=== PATIENT | female | born 1960 | race Hispanic/Latino ===

== ENCOUNTER 2017-04-05 01:29 | Emergency (ER) | payer SELFPAY ==
[~2017-04-05] VITALS: Ht 167.6 cm; Wt 113.4 kg
[~2017-04-05 01:29] MED LIST: DOXY100C2 PO; GFN600TCR PO
--- NOTE | 2017-04-05 01:53 | ED Headache ---
General Stated Complaint: POSS HIGH BLOOD PRESSURE,OWENS Source: patient, family Exam Limitations: language barrier History of Present Illness Time seen by provider: 01:49 Initial Comments Patient presents c/ son c/ c/o OWENS since yesterday. Son states patient's BP has been high of late and wonders if it is a factor. Patient doesn't speak Monegasque. Son is translating. Patient was apparently seen @ [facility] on Monday for back pain and was reportedly evaluated and worked up there. Told she had high BP and was started on metoprolol, but BP has continued to run high. Has a follow up appointment c/ [facility] in 2 weeks. Rates her OWENS a 5/10 and is generalized. No known fever. No N/V. Timing/Duration: 24 hours Severity/Quality: moderate, achy, constant Location: global Prior Headaches/Recent Trauma: occasional headaches Modifying Factors: improves with other (none known) Associated Symptoms: No confusion, No facial pain, No fever/chills, No nausea/ vomiting, No numbness in legs/feet, No sinus infection, No stiff neck, No vision changes Allergies and Home Medications Allergies Coded Allergies: No Known Drug Allergies (Unverified Allergy, Mild, 07/26/09) Home Medications Amlodipine Besylate 5 Mg Tablet, 5 MG PO DAILY, #30 Ref 0 Prescribed by: SHAMIR SHEIKH on 04/05/174 Doxycycline Hyclate 100 Mg Capsule, 1 EACH PO BID for 10 Days, Ref 0 Prescribed by: HAWA DEVI MD on 07/26/0958 Guaifenesin 600 Mg Tab, 600 MG PO Q12HR, #20 Ref 0 Prescribed by: AHWA DEVI MD on 07/26/0958 Constitutional: see HPI : No Psychiatric/Neurological: See HPI, Headache All Other Systems Reviewed Negative Unless Noted: Yes (Negative excepted noted.) Past Kovjxlv-Bqhcxd-Qbasku Hx Patient Social History Recent Foreign Travel: No Contact w/Someone Who Travel: No Physical Exam Vital Signs Vital Sign - Last 12Hours 04/05/17 04/05/17 01:35 03:15 Temp 97.9 Pulse 75 Resp 17 B/P (MAP) 197/102 Pulse Ox 100 O2 Delivery Room Air Capillary Refill : General Appearance: WD/WN, no apparent distress, obese HEENT: PERRL/EOMI, normal ENT inspection, pharynx normal Neck: supple, normal inspection Cardiovascular: regular rate, rhythm Respiratory: no respiratory distress Gastrointestinal: other (obese) Psychiatric: alert Crainal Nerves: normal hearing, PERRL Motor/Sensory: no motor deficit, no sensory deficit Reflexes: 2+ Knee (R), 2+ Knee (L) Skin: warm/dry Progress/Results/Core Measures Results/Orders My Orders Orders - SHAMIR SHEIKH DO Ct Head Wo (04/05/17 01:53) Clonidine Tablet (Catapres Tablet) (04/05/17 02:00) Amlodipine Tablet (Norvasc Tablet) (04/05/17 03:00) Amlodipine Tablet (Norvasc Tablet) (04/05/17 03:07) Medications Given in ED Vital Signs/I&O Vital Sign - Last 12Hours 04/05/17 04/05/17 01:35 03:15 Temp 97.9 97.9 Pulse 75 75 Resp 17 17 B/P (MAP) 197/102 Pulse Ox 100 O2 Delivery Room Air Progress Note : Progress Note Owens did resolve c/ lowering of patient's BP. Going to add Norvasc to current regimen. Told the son the [facility] has a walk in clinic if symptoms continue and can 't wait until scheduled appointment in 2 weeks. Diagnostic Imaging Diagonstic Imaging: CT Plain Films/CT/US/NM/MRI: head Reviewed: Reviewed Night Hawk Study (nothing acute) Departure Impression Impression: Primary Impression: Labile hypertension Additional Impression: Headache Disposition: 01 HOME, SELF-CARE Condition: Improved Departure-Patient Inst. Decision time for Depature: 03:11 Referrals: [facility] (PCP/Family) Primary Care Physician Patient Instructions: High Blood Pressure (DC), Low Salt Diet Add. Discharge Instructions: CONTINUE YOUR CURRENT BLOOD PRESSURE MEDICINE. BEGIN NEW ONE AT BEDTIME MONDAY NIGHT AND DAILY THEREAFTER. KEEP [facility]MENT [facility]EDUL[facility] DO HAVE A WALK IN CLINIC IF NEEDED. Scripts Amlodipine Besylate (Norvasc) 5 Mg Tablet 5 MG PO DAILY for Blood Pressure, #30 TAB 0 Refills Prov: SHAMIR SHEIKH DO 04/05/17 SHAMIR SHEIKH DO Apr 05, 2017 01:53
[2017-04-05] MEDS ORDERED: cloNIDine 0.2 MG (CATAPRES) TAB PO ONE (02:00)
[2017-04-05] MEDS ORDERED: amLODIPine 5 MG (NORVASC) TAB PO ONE (03:00)
[2017-04-05] MEDS ORDERED: amLODIPine 5 MG (NORVASC) TAB ONE (03:07)
[2017-04-05] MEDS ORDERED: AMLO5TAB4 PO (03:14)
[2017-04-05 03:15] VITALS: BP 156/85
--- NOTE | 2017-04-05 07:20 | Diagnostic Imaging Report ---
PROCEDURE: CT head without contrast. TECHNIQUE: Multiple contiguous axial images were obtained through the brain without the use of intravenous contrast. INDICATION: Headache. CT head without contrast shows no evidence of intracranial hemorrhage or mass effect. No extra-axial fluid collection. Basal cisterns are clear. Mastoid air cells and paranasal sinuses well-aerated. IMPRESSION: Negative CT head without contrast. These findings are in agreement with the preliminary report. Dictated by: Dictated on workstation # [id number]
== END 2017-04-05 03:15 | disposition home or self-care (01) ==
LOC: EDUNIT# 01:29 → ER 01:32
DX: R03.0 Elevated blood-pressure reading, without diagnosis of hypertension (principal); R51 Headache
CPT/HCPCS: 70450; 99283

== ENCOUNTER 2017-05-11 22:11 | Emergency (ER) | payer OTHER ==
[~2017-05-11] VITALS: Ht 165.1 cm; Wt 92.1 kg
[~2017-05-11 22:11] MED LIST changes: +AMLO5TAB4 PO
--- NOTE | 2017-05-11 23:22 | ED Cardiac General ---
History of Present Illness General Chief Complaint: Cardiac/General Problems Stated Complaint: HIGH BLOOD PRESSURE Source: patient, family (son) Exam Limitations: language barrier (Vietnamese. Son is bilingual and interpreting) History of Present Illness Time seen by provider: 23:14 Initial Comments Patient presents to ER with chief complaint of feeling a little nauseated and unwell and having a high blood pressure. She was started on metoprolol 50 mg twice a day about 10 days ago and then 3 days ago she was seen in the clinic at [facility] and they added amlodipine 5 mg. Yesterday she was seen for her blood pressure and was started on losartan 25 mg daily. She states she's been taking these medicines without issue. She was also seen 3 days ago for sinus pressure and was diagnosed with a sinus infection and started on Augmentin which she has been taking for the past 3 days. She now has some loose stools and was told by the nurse today that that could be the direct result of the Augmentin. She has no rashes fevers or chills however she has had malaise for the past week or so. She has not had any syncope or abnormal facies or falls or stumbling or weakness. She's had no blindness blurred vision double vision or difficulty with hearing speaking eating or drinking. She feels she is keeping up with her fluid intake despite the diarrhea. Allergies and Home Medications Allergies Coded Allergies: No Known Drug Allergies (Unverified Allergy, Mild, 07/26/09) Home Medications Amlodipine Besylate 5 Mg Tablet, 5 MG PO DAILY, #30 Ref 0 Prescribed by: SHAMIR SHEIKH on 04/05/17 0314 Doxycycline Hyclate 100 Mg Capsule, 1 EACH PO BID for 10 Days, Ref 0 Prescribed by: HAWA DEVI MD on 07/26/09 0658 Guaifenesin 600 Mg Tab, 600 MG PO Q12HR, #20 Ref 0 Prescribed by: HAWA DEVI MD on 07/26/09 0658 Review of Systems Constitutional: No chills, No diaphoresis, No fever, malaise EENTM: No Blurred Vision, No Double Vision, No Eye Pain, No Ear Pain Respiratory: Denies Cough, Denies Shortness of Air Cardiovascular: Denies Chest Pain, Denies Edema, Denies Lightheadedness, Denies Palpitations, Denies Syncope Gastrointestinal: Denies Constipated, Denies Diarrhea, Denies Nausea, Poor Appetite Genitourinary: Denies Burning, Denies Discharge Musculoskeletal: No back pain, No joint pain Skin: No pruritus, No rash Psychiatric/Neurological: Headache (4/10), Denies Numbness Past Vsoiwtu-Jkahdo-Mqlmma Hx Patient Social History Alcohol Use: Denies Use Recreational Drug Use: No Smoking Status: Never a Smoker 2nd Hand Smoke Exposure: No Recent Hopitalizations: No Immunizations Up To Date Tetanus Booster (TDap): Unknown Seasonal Allergies Seasonal Allergies: No Cardiovascular Cardiac Disorders: Hypertension Musculoskeletal Musculoskeletal Disorders: Chronic Back Pain Physical Exam Vital Signs Vital Sign - Last 12Hours 05/11/17 23:09 Temp 98.8 Pulse 90 Resp 20 B/P (MAP) 217/115 Pulse Ox 99 O2 Delivery Room Air Capillary Refill : General Appearance: No Apparent Distress, WD/WN, Anxious HEENT: PERRL/EOMI, TMs Normal, Normal ENT Inspection, Pharynx Normal Neck: Normal Inspection, Supple Respiratory: Lungs Clear, Normal Breath Sounds Cardiovascular: Regular Rate, Rhythm, No Edema, Normal Peripheral Pulses Gastrointestinal: No Organomegaly, No Pulsatile Mass Extremity: Normal Capillary Refill, Normal Inspection, No Calf Tenderness, No Pedal Edema Neurologic/Psychiatric: Alert, Oriented x3, No Motor/Sensory Deficits, inside sales advisor II- XII Norm as Tested Skin: Normal Color, Warm/Dry Progress/Results/Core Measures Results/Orders Lab Results Laboratory Tests Test 05/11/17 23:58 Range/Units White Blood Count 9.5 4.3-11.0 10^3/uL Red Blood Count 4.52 4.35-5.85 10^6/uL Hemoglobin 12.9 11.5-16.0 G/DL Hematocrit 38 35-52 % Mean Corpuscular Volume 85 80-99 FL Mean Corpuscular Hemoglobin 29 25-34 PG Mean Corpuscular Hemoglobin Concent 34 32-36 G/DL Red Cell Distribution Width 13.2 10.0-14.5 % Platelet Count 369 130-400 10^3/uL Mean Platelet Volume 8.8 7.4-10.4 FL Neutrophils (%) (Auto) 70 42-75 % Lymphocytes (%) (Auto) 20 12-44 % Monocytes (%) (Auto) 8 0-12 % Eosinophils (%) (Auto) 1 0-10 % Basophils (%) (Auto) 0 0-10 % Neutrophils # (Auto) 6.6 1.8-7.8 X 10^3 Lymphocytes # (Auto) 1.9 1.0-4.0 X 10^3 Monocytes # (Auto) 0.8 0.0-1.0 X 10^3 Eosinophils # (Auto) 0.1 0.0-0.3 10^3/uL Basophils # (Auto) 0.0 0.0-0.1 10^3/uL Sodium Level 137 135-145 MMOL/L Potassium Level 3.5 L 3.6-5.0 MMOL/L Chloride Level 103 98-107 MMOL/L Carbon Dioxide Level 22 21-32 MMOL/L Anion Gap 12 5-14 MMOL/L Blood Urea Nitrogen 14 7-18 MG/DL Creatinine 0.76 0.60-1.30 MG/DL Estimat Glomerular Filtration Rate > 60 BUN/Creatinine Ratio 18 Glucose Level 229 H 70-105 MG/DL Calcium Level 9.1 8.5-10.1 MG/DL Magnesium Level 2.1 1.8-2.4 MG/DL Total Bilirubin 0.6 0.1-1.0 MG/DL Aspartate Amino Transf (AST/SGOT) 10 5-34 U/L Alanine Aminotransferase (ALT/SGPT) 14 0-55 U/L Alkaline Phosphatase 92 40-136 U/L Troponin I < 0.30 <0.30 NG/ML C-Reactive Protein High Sensitivity 0.37 0.00-0.50 MG/DL B-Type Natriuretic Peptide 19.4 <100.0 PG/ML Total Protein 7.5 6.4-8.2 GM/DL Albumin 3.9 3.2-4.5 GM/DL Thyroid Stimulating Hormone (TSH) 1.44 0.35-4.94 UIU/ML My Orders Orders - BRENDA ALVAREZ Troponin I (05/11/17 23:22) Chest 1 View, Ap/Pa Only (05/11/17 23:22) Ekg Tracing (05/11/17 23:22) Monitor-Rhythm Ecg Trace Only (05/11/17 23:22) Ondansetron Oral Dissolve Tab (Zofran (05/11/17 23:30) BNP (05/11/17 23:22) Cbc With Automated Diff (05/11/17 23:22) Comprehensive Metabolic Panel (05/11/17 23:22) Hs C Reactive Protein (05/11/17 23:22) Magnesium (05/11/17 23:22) Thyroid Stimulating Hormone (05/11/17 23:22) Potassium Chloride (Tablet) (K Dur Table (05/12/17 01:00) Medications Given in ED Current Medications Medications Dose Ordered Sig/Ananda Route Start Time Stop Time Status Last Admin Dose Admin Ondansetron HCl 4 mg ONCE ONCE PO 05/11/17 23:30 05/11/17 23:31 DC 05/11/17 23:42 4 MG Potassium Chloride 20 meq ONCE ONCE PO 05/12/17 01:00 05/12/17 01:01 DC 05/12/17 00:51 20 MEQ Vital Signs/I&O Vital Sign - Last 12Hours 05/11/17 23:09 Temp 98.8 Pulse 90 Resp 20 B/P (MAP) 217/115 Pulse Ox 99 O2 Delivery Room Air Progress Note : Time: 00:23 Progress Note After resting for 20-30 minutes her blood pressure fell to 190/96 which is greater than 20 mm systolic. The patient is still asymptomatic hypertension so we would just initiate a diuretic and let her follow up with her PCP. Augmentin would be a good choice for what appears to be a sinus infection without any systemic signs and the lab. ECG Initial ECG Impression Date: May 12, 2017 Initial ECG Impression Time: 00:11 Initial ECG Rate: 75 Initial ECG Rhythm: Normal Sinus Initial ECG Intervals: Normal Initial ECG Impression: Nonspecific Changes Comment No ST-T wave elevation or depression Diagnostic Imaging Diagonstic Imaging: Xray Plain Films/CT/US/NM/MRI: chest Comments Mild cardiomegaly without any acute cardiopulmonary processes noted. Reviewed: Reviewed by Me Departure Impression Impression: Primary Impression: Asymptomatic hypertension Additional Impression: Diarrhea Qualified Codes: R19.7 - Diarrhea, unspecified Disposition: 01 HOME, SELF-CARE Condition: Improved Departure-Patient Inst. Decision time for Depature: 01:20 Referrals: [facility] (PCP/Family) Primary Care Physician Patient Instructions: High Blood Pressure (DC) Add. Discharge Instructions: Her high blood pressure or best be treated with a another medicine that will remove water from your system called Hydrocort thiazide. This medicine can be taken once daily. For the first day or so you can take one half tablet to your used to taking it. You will need to follow-up early next week for blood testing and blood pressure testing with your primary care physician. If you're having any more symptoms of feeling odd, off or having a headache or chills then I would have you go lay down in a quiet place for 30 minutes and rechecked her blood pressure. If you're having any symptoms with your nerves such as blindness falls, facial drooping or asymmetry then you should return to the ER immediately. If you continue to have diarrhea you should take 2 tablets of Imodium. If you' re having diarrhea 4 hours later take another tablet every 4 hours until your diarrhea has slowed down. I encouraged you to increase the fiber in your diet with dark green leafy vegetables like Kale, spinach, broccoli and while you're on antibiotics you should eat 2 servings of yogurt with active culture as well as take one capsule of probiotics twice a day until you're done with the antibiotics. If you're still unable to tolerate the antibiotics and the diarrhea then you should speak with your primary care physician. You should also encourage lots of fluids such as half strength Gatorade or water. All discharge instructions reviewed with patient and/or family. Voiced understanding. Scripts Hydrochlorothiazide (Hydrochlorothiazide) 25 Mg Tablet 25 MG PO DAILY for 30 Days, #30 TAB 0 Refills Prov: BRENDA ALVAREZ 05/12/17 Copy Copies To 1: HENRY MENG TITUS J May 11, 2017 23:21
[2017-05-11] MEDS ORDERED: ONDANSETRON 4 MG (ZOFRAN) ORAL DISSOLVE TAB PO ONE (23:30)
[2017-05-12 00:12] LABS: BASOPHILS % (AUTO) 0 % (0-10); EOSINOPHILS # (AUTO) 0.1 10^3/uL (0.0-0.3); EOSINOPHILS % (AUTO) 1 % (0-10); LYMPHOCYTES # (AUTO) 1.9 X 10^3 (1.0-4.0); LYMPHOCYTES % (AUTO) 20 % (12-44); MEAN CORPUSCULAR HEMOGLOBIN 29 PG (25-34); MEAN CORPUSCULAR HGB CONC 34 G/DL (32-36); MEAN CORPUSCULAR VOLUME 85 FL (80-99); MEAN PLATELET VOLUME 8.8 FL (7.4-10.4); MONOCYTES # (AUTO) 0.8 X 10^3 (0.0-1.0); MONOCYTES % (AUTO) 8 % (0-12); NEUTROPHILS # (AUTO) 6.6 X 10^3 (1.8-7.8); NEUTROPHILS % (AUTO) 70 % (42-75); PLATELET COUNT 369 10^3/uL (130-400); RED BLOOD COUNT 4.52 10^6/uL (4.35-5.85); RED CELL DISTRIBUTION WIDTH 13.2 % (10.0-14.5); WHITE BLOOD COUNT 9.5 10^3/uL (4.3-11.0)
[2017-05-12 00:37] LABS: ALANINE AMINOTRANSFERASE 14 U/L (0-55); ALBUMIN 3.9 GM/DL (3.2-4.5); ANION GAP 12 MMOL/L (5-14); ASPARTATE AMINO TRANSFERASE 10 U/L (5-34); BILIRUBIN,TOTAL 0.6 MG/DL (0.1-1.0); BLOOD UREA NITROGEN 14 MG/DL (7-18); BUN/CREATININE RATIO 18; CALCIUM 9.1 MG/DL (8.5-10.1); CARBON DIOXIDE 22 MMOL/L (21-32); CHLORIDE 103 MMOL/L (98-107); CREATININE SERUM 0.76 MG/DL (0.60-1.30); GFR ESTIMATED > 60; GLUCOSE 229 MG/DL (70-105); MAGNESIUM 2.1 MG/DL (1.8-2.4); POTASSIUM 3.5 MMOL/L (3.6-5.0); SODIUM 137 MMOL/L (135-145); TOTAL PROTEIN 7.5 GM/DL (6.4-8.2); hs C REACTIVE PROTEIN 0.37 MG/DL (0.00-0.50)
[2017-05-12 00:56] LABS: THYROID STIMULATING HORMONE 1.44 UIU/ML (0.35-4.94)
[2017-05-12] MEDS ORDERED: KCL 20 MEQ TAB (K-DUR) PO ONE (01:00)
[2017-05-12] MEDS ORDERED: HYDR25TA4 PO (01:27)
[2017-05-12 01:31] VITALS: BP 163/95
--- NOTE | 2017-05-12 07:22 | Diagnostic Imaging Report ---
Portable upright radiograph of the chest. INDICATION: Elevated blood pressure. FINDINGS: The lungs are clear. Heart size is normal. No effusion or pneumothorax. Mediastinum and marianela appear unremarkable. IMPRESSION: Unremarkable exam. Dictated by: Dictated on workstation # [id number]
== END 2017-05-12 01:31 | disposition home or self-care (01) ==
LOC: EDUNIT# 22:11 → ER 22:12
DX: I10 Essential (primary) hypertension (principal); R19.7 Diarrhea, unspecified; Z79.899 Other long term (current) drug therapy
CPT/HCPCS: 36415; 71010; 80053; 83735; 83880; 84443; 84484; 85025; 86141; 93005

== ENCOUNTER → 2017-07-03 | Outpatient (CLI) | payer OTHER ==
[~2017-07-03] MED LIST changes: +HYDR25TA4 PO
== END ==
LOC: EDBD → MERGE 09:00 → CARD 09:09
PROVIDERS: ATTEND Internal Medicine Cardiovascular Disease
DX: I10 Essential (primary) hypertension (principal)
CPT/HCPCS: 93306

== ENCOUNTER → 2017-07-12 | Outpatient (CLI) | payer OTHER | LOC: EDBD → MERGE 07-03 10:30 → CARD 09:31 | PROVIDERS: ATTEND Internal Medicine Cardiovascular Disease | DX: I10 Essential (primary) hypertension (principal) | CPT/HCPCS: 93017 ==

== ENCOUNTER 2017-11-28 15:06 | Emergency (ER) | payer SELFPAY ==
[~2017-11-28] VITALS: Ht 167.6 cm; Wt 88.5 kg
[2017-11-28] MEDS ORDERED: PANTOPRAZOLE 40 MG/10 ML (PROTONIX) VIAL IV STA (15:38)
[2017-11-28] MEDS ORDERED: NS IV 1000 ML 1,000 ML IV ONE (15:38)
[2017-11-28] MEDS ORDERED: HYOSCYAMINE 0.125 MG (LEVSIN) TAB SL ONE (15:45)
[2017-11-28] MEDS ORDERED: ONDANSETRON 4 MG/2 ML (SDV) Z0FRAN IVP ONE (15:45)
--- NOTE | 2017-11-28 15:47 | ED Abdominal Pain ---
General Chief Complaint: Abdominal/GI Problems Stated Complaint: ABD PAIN;NAUSEA Nursing Triage Note: pt reports nausea and abdmominal pain since yesterday morning. 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 LATER [employer]PRETS) Exam Limitations: Language Barrier (PT DOES NOT SPEAK AMHARIC) History of Present Illness Date Seen by Provider: Nov 28, 2017 Time Seen by Provider: 15:30 Initial Comments PT C/O UPPER ABDOMINAL PAIN FOR A COUPLE OF DAYS PAIN COMES AND GOES AND IS SEVERE AT TIMES HAS NAUSEA WHEN PAIN IN SEVERE HAD DIARRHEA X 2 THIS AM HAS HAD SUBJECTIVE FEVER NO URINARY SYMPTOMS AND VOIDED IN WAITING ROOM HAS NOT HAD ANY FOOD TODAY, BUT HAS HAD 2 BOTTLES OF WATER AND SMALL AMOUNT OF JUICE. PT WAS DX WITH ULCER 5 MONTHS AGO--HAD EGD X 2, INITIAL EGD, AND HAD POST- TREATMENT EGD, AND POST-TREATMENT EGD SHOWED THAT ULCER WAS HEALED, FINISHED MEDICATIONS A MONTH AGO AND WAS TOLD SHE DID NOT HAVE TO TAKE ANY MORE MEDICATIONS. PT IS DIABETIC, ON ORAL MEDICATIONS, GLUCOSE WAS 140 THIS AM PCP: [facility] GI: UNKNOWN DR. PEPE ALCARAZ Allergies and Home Medications Allergies Coded Allergies: No Known Drug Allergies (Unverified Allergy, Mild, 07/26/09) Home Medications Amlodipine Besylate 5 Mg Tablet, 5 MG PO DAILY, #30 Ref 0 Prescribed by: SHAMIR SHEIKH on 04/05/17 0314 Doxycycline Hyclate 100 Mg Capsule, 1 EACH PO BID for 10 Days, Ref 0 Prescribed by: HAWA DEVI MD on 07/26/09 0658 Guaifenesin 600 Mg Tab, 600 MG PO Q12HR, #20 Ref 0 Prescribed by: HAWA DEVI MD on 07/26/09 0658 Hydrochlorothiazide 25 Mg Tablet, 25 MG PO DAILY for 30 Days, #30 Ref 0 Prescribed by: BRENDA ALVAREZ on 05/12/17 0127 Hyoscyamine Sulfate 0.125 Mg Tab.subl, 1-2 TAB SL Q4H, #15 Prescribed by: SONG OCHOA on 11/28/17 1752 Ondansetron 4 Mg Tab.rapdis, 4 MG PO Q4H, #10 Prescribed by: SONG OCHOA on 2/6/18 1752 Pantoprazole Sodium 40 Mg Tablet., 40 MG PO DAILY, #30 Prescribed by: SONG OCHOA on 11/28/171751 Sucralfate 1 Gm Tablet, 1 GM PO QIDACHS, #120 Prescribed by: SONG OCHOA on 11/28/171751 Review of Systems Constitutional: no symptoms reported EENTM: No Symptoms Reported Respiratory: No Symptoms Reported Cardiovascular: No Symptoms Reported Gastrointestinal: See HPI, Abdominal Pain, Diarrhea, Nausea, Poor Appetite, Poor Fluid Intake, Denies Vomiting Genitourinary: No Symptoms Reported Musculoskeletal: no symptoms reported Skin: no symptoms reported Psychiatric/Neurological: No Symptoms Reported Endocrine: No Symptoms Reported Hematologic/Lymphatic: No Symptoms Reported Past Gmchokg-[id number]-Xfbjhk Hx Patient Social History Alcohol Use: Denies Use Recreational Drug Use: No Smoking Status: Never a Smoker 2nd Hand Smoke Exposure: No Recent Foreign Travel: No Contact w/Someone Who Travel: No Recent Infectious Disease Expo: No Recent Hopitalizations: No Physical Abuse: No Sexual Abuse: No Mistreated: No Fear: No Immunizations Up To Date Tetanus Booster (TDap): Unknown Seasonal Allergies Seasonal Allergies: No Surgeries History of Surgeries: Yes (EGD X 2) Respiratory History of Respiratory Disorde: No Cardiovascular History of Cardiac Disorders: Yes Cardiac Disorders: High Cholesterol, Hypertension Neurological History of Neurological Disord: No Reproductive System : 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 Genitourinary History of Genitourinary Disor: No Gastrointestinal History of Gastrointestinal Di: Yes Gastrointestinal Disorders: Ulcer Musculoskeletal History of Musculoskeletal Dis: Yes Musculoskeletal Disorders: Chronic Back Pain Endocrine History of Endocrine Disorders: Yes Endocrine Disorders: Diabetes, Non-Insulin dep HEENT History of HEENT Disorders: No Cancer History of Cancer: No Psychosocial History of Psychiatric Problem: No Suicide Risk Score: 0 Integumentary History of Skin or Integumenta: No Blood Transfusions History of Blood Disorders: No Physical Exam Vital Signs VS - Last 72 Hours, by Label 11/28/17 15:25 Temp 98.2 Pulse 90 Resp 20 B/P (MAP) 168/98 (121) Pulse Ox 100 Capillary Refill : Less Than 3 Seconds General Appearance: WD/WN, no apparent distress Neck: normal inspection Respiratory: normal breath sounds, no respiratory distress, no accessory muscle use Cardiovascular: regular rate, rhythm, no edema, no JVD, no murmur Gastrointestinal: normal bowel sounds, soft, no organomegaly, no pulsatile mass , tenderness (EPIGASTRIC AREA) Extremities: normal inspection, normal capillary refill Back: normal inspection, no CVA tenderness Neurologic/Psychiatric: value analyst II-XII nml as tested, no motor/sensory deficits, alert, normal mood/affect, oriented x 3 Skin: normal color, warm/dry Progress/Results/Core Measures Results/Orders Lab Results Laboratory Tests Test 11/28/17 15:43 Range/Units White Blood Count 9.2 4.3-11.0 10^3/uL Red Blood Count 4.48 4.35-5.85 10^6/uL Hemoglobin 13.1 11.5-16.0 G/DL Hematocrit 38 35-52 % Mean Corpuscular Volume 85 80-99 FL Mean Corpuscular Hemoglobin 29 25-34 PG Mean Corpuscular Hemoglobin Concent 35 32-36 G/DL Red Cell Distribution Width 13.5 10.0-14.5 % Platelet Count 307 130-400 10^3/uL Mean Platelet Volume 8.9 7.4-10.4 FL Neutrophils (%) (Auto) 76 H 42-75 % Lymphocytes (%) (Auto) 18 12-44 % Monocytes (%) (Auto) 5 0-12 % Eosinophils (%) (Auto) 1 0-10 % Basophils (%) (Auto) 0 0-10 % Neutrophils # (Auto) 7.0 1.8-7.8 X 10^3 Lymphocytes # (Auto) 1.6 1.0-4.0 X 10^3 Monocytes # (Auto) 0.4 0.0-1.0 X 10^3 Eosinophils # (Auto) 0.1 0.0-0.3 10^3/uL Basophils # (Auto) 0.0 0.0-0.1 10^3/uL Urine Color YELLOW Urine Clarity CLEAR Urine pH 6 5-9 Urine Specific [place] 1.010 L 1.016-1.022 Urine Protein NEGATIVE NEGATIVE Urine Glucose (UA) NEGATIVE NEGATIVE Urine Ketones NEGATIVE NEGATIVE Urine Nitrite NEGATIVE NEGATIVE Urine Bilirubin NEGATIVE NEGATIVE Urine Urobilinogen NORMAL NORMAL MG/DL Urine Leukocyte Esterase 1+ H NEGATIVE Urine RBC (Auto) NEGATIVE NEGATIVE Urine RBC NONE /HPF Urine WBC 0-2 /HPF Urine Squamous Epithelial Cells 0-2 /HPF Urine Crystals NONE /LPF Urine Bacteria NONE /HPF Urine Casts NONE /LPF Urine Mucus NEGATIVE /LPF Urine Culture Indicated NO Sodium Level 137 135-145 MMOL/L Potassium Level 3.4 L 3.6-5.0 MMOL/L Chloride Level 101 98-107 MMOL/L Carbon Dioxide Level 24 21-32 MMOL/L Anion Gap 12 5-14 MMOL/L Blood Urea Nitrogen 17 7-18 MG/DL Creatinine 0.81 0.60-1.30 MG/DL Estimat Glomerular Filtration Rate > 60 BUN/Creatinine Ratio 21 Glucose Level 179 H 70-105 MG/DL Calcium Level 10.0 8.5-10.1 MG/DL Magnesium Level 2.1 1.8-2.4 MG/DL Total Bilirubin 0.9 0.1-1.0 MG/DL Aspartate Amino Transf (AST/SGOT) 22 5-34 U/L Alanine Aminotransferase (ALT/SGPT) 37 0-55 U/L Alkaline Phosphatase 90 40-136 U/L Total Protein 8.4 H 6.4-8.2 GM/DL Albumin 4.4 3.2-4.5 GM/DL Amylase Level 91 25-125 U/L Lipase 30 8-78 U/L My Orders Orders - SONG OCHOA DO Saline Lock/Iv-Start (11/28/17 15:38) Amylase (11/28/17 15:38) Cbc With Automated Diff (11/28/17 15:38) Comprehensive Metabolic Panel (11/28/17 15:38) Lipase (11/28/17 15:38) Magnesium (11/28/17 15:38) Ua Culture If Indicated (11/28/17 15:38) Ns Iv 1000 Ml (Sodium Chloride 0.9%) (11/28/17 15:38) Ondansetron Injection (Zofran Injectio (11/28/17 15:45) Hyoscyamine Sl Tablet (Levsin Sl Tablet) (11/28/17 15:45) Pantoprazole Injection (Protonix Injecti (11/28/17 15:38) Ct Abd/Pelv W (Appendicitis) (11/28/17 16:16) Acute Abd Series (11/28/17 16:16) Iohexol Injection (Omnipaque 350 Mg/Ml 1 (11/28/17 16:30) Ns (Ivpb) (Sodium Chloride 0.9% Ivpb Bag (11/28/17 16:30) Medications Given in ED Current Medications Medications Dose Ordered Sig/Ananda Route Start Time Stop Time Status Last Admin Dose Admin Hyoscyamine Sulfate 0.25 mg ONCE ONCE SL 11/28/17 15:45 11/28/17 15:46 DC 11/28/17 16:07 0.25 MG Iohexol 100 ml ONCE ONCE IV 11/28/17 16:30 11/28/17 16:31 DC 11/28/17 16:33 100 ML Ondansetron HCl 4 mg ONCE ONCE IVP 11/28/17 15:45 11/28/17 15:46 DC 11/28/17 16:07 4 MG Sodium Chloride 100 ml ONCE ONCE IV 11/28/17 16:30 11/28/17 16:31 DC 11/28/17 16:33 100 ML Sodium Chloride 1,000 ml @ 0 mls/hr Q0M ONCE IV 11/28/17 15:38 11/28/17 15:41 DC 11/28/17 16:08 0 MLS/HR Vital Signs/I&O Vital Sign - Last 12Hours 11/28/17 15:25 Temp 98.2 Pulse 90 Resp 20 B/P (MAP) 168/98 (121) Pulse Ox 100 Blood Pressure Mean: 121 Progress Note : Progress Note SYMPTOMS COMPLETELY RESOLVED WITH MEDICATIONS DISCUSSED WITH PT AND FAMILY THAT SHE MAY HAVE A RECURRENCE OF ULCER OR GASTRITIS, AND WILL RESTART HER GI MEDICATIONS AND HAVE HER FOLLOW UP WITH GI DRLuis ALCARAZ ALSO DISCUSSED ABNORMAL FINDINGS ON CT OF HER UTERUS. VERIFIED THAT PT IS MENOPAUSAL. INFORMED THAT SHE WILL NEED TO HAVE FURTHER OUTPATIENT EVALUATION OF THIS Diagnostic Imaging Comments ACUTE ABDOMEN XRAYS--NO ACUTE PROCESS CT ABDOMEN/PELVIS--NO ACUTE PROCESS, ABNORMALLY THICKENED ENDOMETRIUM TO 14 MM PER RADIOLOGIST REPORTS @ 1730 Reviewed: Reviewed by Me Departure Impression Impression: Primary Impression: Epigastric abdominal pain Additional Impressions: Thickened endometrium RECENT PEPTIC ULCER Disposition: 01 HOME, SELF-CARE Condition: Improved Departure-Patient Inst. Referrals: [facility] (PCP/Family) Primary Care Physician Patient Instructions: Acute Abdomen (Belly Pain), Adult (DC), Gastritis (DC), Peptic Ulcers (DC) Add. Discharge Instructions: CLEAR LIQUIDS TODAY--WATER, BROTH, JELLO, GATORADE TOMORROW IF YOU ARE BETTER, ADD BRATS DIET TO CLEAR LIQUIDS--BANANAS, RICE, APPLESAUCE, TOAST, SALTINES FOLLOW UP WITH [facility] IN [place] THIS WEEK FOR FURTHER CARE FOLLOW UP WITH [facility] [place] NEXT WEEK FOR FOLLOW UP CARE FOR FURTHER EVALUATION OF ABNORMAL FINDINGS OF UTERUS, ON CT SCAN All discharge instructions reviewed with patient and/or family. Voiced understanding. Scripts Ondansetron (Zofran Odt) 4 Mg Tab.rapdis 4 MG PO Q4H for Nausea/Vomiting, #10 TAB Prov: SONG OCHOA DO 11/28/17 Hyoscyamine Sulfate (Levsin-Sl) 0.125 Mg Tab.subl 1-2 TAB SL Q4H for Abdominal Pain, #15 TAB Prov: SONG OCHOA DO 11/28/17 Sucralfate (Carafate) 1 Gm Tablet 1 GM PO QIDACHS, #120 TAB Prov: SONG OCHOA DO 11/28/17 Pantoprazole Sodium (Protonix) 40 Mg Tablet.dr 40 MG PO DAILY, #30 TAB Prov: SONG OCHOA DO 11/28/17 SONG OCHOA DO Nov 28, 2017 15:47
[2017-11-28 15:54] LABS: BASOPHILS % (AUTO) 0 % (0-10); BILIRUBIN,URINE NEGATIVE (NEGATIVE); CLARITY,URINE CLEAR; COLOR,URINE YELLOW; EOSINOPHILS # (AUTO) 0.1 10^3/uL (0.0-0.3); EOSINOPHILS % (AUTO) 1 % (0-10); GLUCOSE, URINE (UA) NEGATIVE (NEGATIVE); HEMATOCRIT 38 % (35-52); HEMOGLOBIN 13.1 G/DL (11.5-16.0); KETONES,URINE NEGATIVE (NEGATIVE); LEUKOCYTE ESTERASE ,URINE 1+ (NEGATIVE); LYMPHOCYTES # (AUTO) 1.6 X 10^3 (1.0-4.0); LYMPHOCYTES % (AUTO) 18 % (12-44); MEAN CORPUSCULAR HEMOGLOBIN 29 PG (25-34); MEAN CORPUSCULAR HGB CONC 35 G/DL (32-36); MEAN CORPUSCULAR VOLUME 85 FL (80-99); MEAN PLATELET VOLUME 8.9 FL (7.4-10.4); MONOCYTES # (AUTO) 0.4 X 10^3 (0.0-1.0); MONOCYTES % (AUTO) 5 % (0-12); NEUTROPHILS % (AUTO) 76 % (42-75); NITRITE,URINE NEGATIVE (NEGATIVE); PH,URINE 6 (5-9); PLATELET COUNT 307 10^3/uL (130-400); PROTEIN,URINE NEGATIVE (NEGATIVE); RED BLOOD COUNT 4.48 10^6/uL (4.35-5.85); RED CELL DISTRIBUTION WIDTH 13.5 % (10.0-14.5); UROBILINOGEN,URINE NORMAL (NORMAL); WHITE BLOOD COUNT 9.2 10^3/uL (4.3-11.0)
[2017-11-28 16:00] LABS: SQUAMOUS EPITHELIAL CELL,UR 0-2 /HPF; WBC,URINE 0-2 /HPF
[2017-11-28 16:13] LABS: ALANINE AMINOTRANSFERASE 37 U/L (0-55); ALBUMIN 4.4 GM/DL (3.2-4.5); ALKALINE PHOSPHATASE 90 U/L (40-136); AMYLASE 91 U/L (25-125); BILIRUBIN,TOTAL 0.9 MG/DL (0.1-1.0); BUN/CREATININE RATIO 21; CARBON DIOXIDE 24 MMOL/L (21-32); CHLORIDE 101 MMOL/L (98-107); CREATININE SERUM 0.81 MG/DL (0.60-1.30); GFR ESTIMATED > 60; GLUCOSE 179 MG/DL (70-105); LIPASE 30 U/L (8-78); MAGNESIUM 2.1 MG/DL (1.8-2.4); POTASSIUM 3.4 MMOL/L (3.6-5.0); SODIUM 137 MMOL/L (135-145); TOTAL PROTEIN 8.4 GM/DL (6.4-8.2)
[2017-11-28] MEDS ORDERED: NS 100 ML (IVPB) BAG IV ONE (16:30)
[2017-11-28] MEDS ORDERED: IOHEXOL 350 MG/ML 100 ML (OMNIPAQUE 350) VIAL IV ONE (16:30)
--- NOTE | 2017-11-28 16:45 | Diagnostic Imaging Report ---
Procedure: Acute abdomen series. Indication: Abdominal pain, nausea and vomiting. Findings: The accompanying erect PA chest shows the heart size to be within normal limits and stable when compared to 05/11/2017. The lungs are clear. There is no sign of pneumoperitoneum. Supine and erect views of the abdomen were obtained. There is gas in both the large and small bowel in a nonspecific fashion. There is no evidence for a bowel obstruction. There is a moderate amount of fecal material within the colon. There is no mass or organomegaly appreciated. There are linear calcifications on each side of the pelvis. These may be vascular in nature or could be secondary to calcifications of the fallopian tubes. The osseous structures are intact. Impression: The bowel gas pattern is nonspecific. There is no acute abnormality identified. Dictated by: Dictated on workstation # [id number]
--- NOTE | 2017-11-28 17:05 | Diagnostic Imaging Report ---
PROCEDURE: CT abdomen and pelvis with contrast, rule out appendicitis. TECHNIQUE: Multiple contiguous axial images were obtained through the abdomen and pelvis after the administration of intravenous contrast. INDICATION: Abdominal pain. There are no prior CT examinations available for comparison. FINDINGS: The appendix was visualized and is not abnormally thickened. There is no distortion of the periappendiceal fat to suggest acute appendicitis either. There is no pelvic mass or free fluid collection noted. The uterus is prominent and the endometrial lining does seem slightly thickened measuring 14 mm (normal postmenopausal endometrial thickness 5 mm or less). If the patient is postmenopausal, then a nonemergent pelvic ultrasound exam would be recommended for further study. There are curvilinear calcifications on each side of the uterus. Most likely, these are related to calcified fallopian tubes. There is no evidence for nephrolithiasis and both kidneys do show excretion of the contrast. There is a 1.5 x 1.6 cm fat density mass in the left kidney. Most likely, this represents a renal angiomyolipoma. The liver is of lower density than usually seen. This does suggest fatty metamorphosis. The spleen, pancreas, gallbladder, adrenals, aorta and inferior vena cava are unremarkable for an acute abnormality. The stomach is not well distended and consequently difficult to assess. The lung bases are clear. The bone windows show no sign of a fracture or of a destructive lesion. There are partially healed bilateral pars defects at L5. IMPRESSION: 1. There is no acute abnormality of the abdomen or pelvis. In particular, there is no sign of appendicitis. 2. The endometrial lining of the uterus is thickened for a postmenopausal patient. Recommendations as above. 3. The fat-density mass within the left kidney is most likely a benign process such as a renal angiomyolipoma. Dictated by: Dictated on workstation # [id number]
[2017-11-28] MEDS ORDERED: HYOS0.1283 SL (17:52)
[2017-11-28] MEDS ORDERED: SUCR1TAB36 PO (17:52)
[2017-11-28] MEDS ORDERED: ONDA4TAB8 PO (17:52)
[2017-11-28] MEDS ORDERED: PANT40TA2 PO (17:52)
[2017-11-28 18:14] VITALS: BP 139/88
== END 2017-11-28 18:14 | disposition home or self-care (01) ==
LOC: EDUNIT# 15:06 → ER 15:08
DX: K27.9 Peptic ulcer, site unspecified, unspecified as acute or chronic, without hemorrhage or perforation (principal); R93.8 Abnormal findings on diagnostic imaging of other specified body structures; E78.00 Pure hypercholesterolemia, unspecified; I10 Essential (primary) hypertension; E11.9 Type 2 diabetes mellitus without complications; Z87.19 Personal history of other diseases of the digestive system
CPT/HCPCS: 36415; 74022; 74177; 80053; 81000; 82150; 83690; 83735; 85025; 96361; 96374; 96375

== ENCOUNTER 2017-12-25 07:21 | Emergency (ER) | payer SELFPAY ==
[~2017-12-25] VITALS: Ht 167.6 cm; Wt 88.5 kg
[~2017-12-25 07:21] MED LIST changes: +HYOS0.1283 SL; +ONDA4TAB8 PO; +PANT40TA2 PO; +SUCR1TAB36 PO
[2017-12-25 08:51] LABS: BASOPHILS % (AUTO) 0 % (0-10); EOSINOPHILS % (AUTO) 0 % (0-10); HEMATOCRIT 38 % (35-52); HEMOGLOBIN 13.3 G/DL (11.5-16.0); LYMPHOCYTES # (AUTO) 1.4 X 10^3 (1.0-4.0); LYMPHOCYTES % (AUTO) 19 % (12-44); MEAN CORPUSCULAR HEMOGLOBIN 29 PG (25-34); MEAN CORPUSCULAR HGB CONC 35 G/DL (32-36); MEAN CORPUSCULAR VOLUME 83 FL (80-99); MEAN PLATELET VOLUME 9.4 FL (7.4-10.4); MONOCYTES # (AUTO) 0.4 X 10^3 (0.0-1.0); MONOCYTES % (AUTO) 6 % (0-12); NEUTROPHILS # (AUTO) 5.5 X 10^3 (1.8-7.8); NEUTROPHILS % (AUTO) 75 % (42-75); PLATELET COUNT 345 10^3/uL (130-400); RED BLOOD COUNT 4.55 10^6/uL (4.35-5.85); WHITE BLOOD COUNT 7.4 10^3/uL (4.3-11.0)
--- NOTE | 2017-12-25 09:15 | Diagnostic Imaging Report ---
Indication: Chest pain Comparison: 05/11/2017 Findings: Upright portable view of the chest is obtained. Heart size is normal. The pulmonary vessels appear unremarkable. There is no pneumothorax, mediastinal widening or pleural fluid. Lungs are clear. IMPRESSION: Negative chest. Dictated by: Dictated on workstation # [id number]
[2017-12-25 09:23] LABS: PROTHROMBIN TIME PATIENT 13.7 SEC (12.2-14.7)
[2017-12-25] MEDS ORDERED: LIDOCAINE 2% VISCOUS 15 ML UDC PO ONE (09:30)
[2017-12-25] MEDS ORDERED: ANTACID SUSP 30 ML UDC (MYLANTA) PO ONE (09:30)
[2017-12-25] MEDS ORDERED: ONDANSETRON 4 MG/2 ML (SDV) Z0FRAN IVP ONE (09:30)
[2017-12-25] MEDS ORDERED: FAMOTIDINE 20MG/2ML IV (PEPCID) IVP ONE (09:30)
[2017-12-25 09:34] LABS: ALANINE AMINOTRANSFERASE 21 U/L (0-55); ALBUMIN 4.3 GM/DL (3.2-4.5); ALKALINE PHOSPHATASE 84 U/L (40-136); BILIRUBIN,TOTAL 0.8 MG/DL (0.1-1.0); BUN/CREATININE RATIO 17; CALCIUM 10.1 MG/DL (8.5-10.1); CARBON DIOXIDE 27 MMOL/L (21-32); CHLORIDE 101 MMOL/L (98-107); CREATININE SERUM 0.82 MG/DL (0.60-1.30); GFR ESTIMATED > 60; GLUCOSE 164 MG/DL (70-105); MAGNESIUM 2.2 MG/DL (1.8-2.4); POTASSIUM 3.6 MMOL/L (3.6-5.0); SODIUM 138 MMOL/L (135-145); TOTAL PROTEIN 8.1 GM/DL (6.4-8.2)
[2017-12-25] MEDS ORDERED: LOSA50TA36 PO (09:36)
[2017-12-25] MEDS ORDERED: METF500T PO (09:36)
[2017-12-25] MEDS ORDERED: ATOR40TA70 PO (09:36)
[2017-12-25] MEDS ORDERED: METO50TA15 PO (09:36)
[2017-12-25 09:41] LABS: MYOGLOBIN SERUM 29.4 NG/ML (10.0-92.0)
--- NOTE | 2017-12-25 10:48 | ED Chest Pain ---
General Chief Complaint: Abdominal/GI Problems Stated Complaint: ABD PAIN, BACK PAIN,CHEST DISCOMFORT Nursing Triage Note: C/O OF STERNAL PAIN ET BACK PAIN STARTING AT 0300 THIS AM. PT. STATED SHE HAD PIZZA LAST NIGHT. PT. HAS HX GI PROBLEMS. WAS IN [place] @5-6 MONTHS AGO FOR BLEEDING ULCERS. HX GIVEN BY SON, MARY. PT. STATES LAST TIME SEEN IN ER, SHE ALSO HAD PIZZA Nursing Sepsis Screen: No Definite Risk Source: patient, chips screen tender, old records Exam Limitations: language barrier History of Present Illness Date Seen by Provider: Dec 25, 2017 Time Seen by Provider: 07:48 Initial Comments This 57-year-old woman presents to the emergency room accompanied by her bilingual son and complains of epigastric pain, low central chest pain, and mid upper back pain. Pain started around 03:00. She felt weak and nauseated. She has some occasional mild dizziness. Her son comments that she ate pizza last night and symptoms started after that. She has a history of "ulcers". She has no history of heart or lung disease other than hypertension and hyperlipidemia. She was seen in this ER about a month ago with similar complaints of epigastric pain. A thorough workup at that time included a CT scan. She was started on Carafate and a PPI which she continues to take. She has previously undergone endoscopy in [place] and reportedly had ulcers that healed on a follow- up scope. Allergies and Home Medications Allergies Coded Allergies: No Known Drug Allergies (Unverified Allergy, Mild, 07/26/09) Home Medications Amlodipine Besylate 5 Mg Tablet, 5 MG PO DAILY Prescribed by: SHAMIR SHEIKH on 04/05/17 0314 Atorvastatin Calcium 40 Mg Tablet, 40 MG PO DAILY, (Reported) Doxycycline Hyclate 100 Mg Capsule, 1 EACH PO BID Prescribed by: HAWA DEVI MD on 07/26/09657 Famotidine 20 Mg Tablet, 20 MG PO BID Prescribed by: IJEOMA PURDY on 12/25/17 1053 Guaifenesin 600 Mg Tab, 600 MG PO Q12HR Prescribed by: HAWA DEVI MD on 07/26/09657 Hydrochlorothiazide 25 Mg Tablet, 25 MG PO DAILY Prescribed by: BRENDA ALVAREZ on 05/12/17 0127 Hyoscyamine Sulfate 0.125 Mg Tab.subl, 1-2 TAB SL Q4H Prescribed by: SONG OCHOA on 11/28/171751 Losartan Potassium 50 Mg Tablet, 50 MG PO BID, (Reported) Metformin HCl 500 Mg Tablet, 500 MG PO BID WITH MEALS, (Reported) Metoprolol Tartrate 50 Mg Tablet, 50 MG PE PO BID, (Reported) Ondansetron 4 Mg Tab.rapdis, 4 MG PO Q4H Prescribed by: SONG OCHOA on 11/28/171751 Pantoprazole Sodium 40 Mg Tablet.dr, 40 MG PO DAILY Prescribed by: SONG OCHOA on 11/28/171751 Sucralfate 1 Gm Tablet, 1 GM PO QIDACHS Prescribed by: SONG OCHOA on 11/28/171751 Patient Home Medication List Home Medication List Reviewed: Yes Review of Systems Constitutional: no symptoms reported EENTM: No Symptoms Reported Respiratory: No Symptoms Reported Cardiovascular: No Symptoms Reported Gastrointestinal: See HPI Genitourinary: No Symptoms Reported Musculoskeletal: no symptoms reported Skin: no symptoms reported Psychiatric/Neurological: No Symptoms Reported Endocrine: No Symptoms Reported Hematologic/Lymphatic: No Symptoms Reported Past Cephsmz-Eekizr-Sdswly Hx Patient Social History Alcohol Use: Denies Use Recreational Drug Use: No Smoking Status: Never a Smoker 2nd Hand Smoke Exposure: No Recent Foreign Travel: No Contact w/Someone Who Travel: No Recent Infectious Disease Expo: No Recent Hopitalizations: No Physical Abuse: No Sexual Abuse: No Immunizations Up To Date Tetanus Booster (TDap): Unknown Seasonal Allergies Seasonal Allergies: No Surgeries History of Surgeries: Yes (EGD X 2) Surgeries: Section Respiratory History of Respiratory Disorde: No Cardiovascular History of Cardiac Disorders: Yes Cardiac Disorders: High Cholesterol, Hypertension Neurological History of Neurological Disord: No Reproductive System : No RN CVOR History: Menopausal Genitourinary History of Genitourinary Disor: No Gastrointestinal History of Gastrointestinal Di: Yes Gastrointestinal Disorders: Ulcer Musculoskeletal History of Musculoskeletal Dis: Yes Musculoskeletal Disorders: Chronic Back Pain Endocrine History of Endocrine Disorders: Yes Endocrine Disorders: Diabetes, Non-Insulin dep HEENT History of HEENT Disorders: No Cancer History of Cancer: No Psychosocial History of Psychiatric Problem: No Suicide Risk Score: 0 Integumentary History of Skin or Integumenta: No Blood Transfusions History of Blood Disorders: No Physical Exam Vital Signs Vital Signs - First Documented 12/25/17 07:47 Temp 97.3 Pulse 106 Resp 22 B/P (MAP) 148/96 (113) Pulse Ox 97 O2 Delivery Room Air Capillary Refill : Less Than 3 Seconds General Appearance: No Apparent Distress, WD/WN HEENT: PERRL/EOMI, Normal ENT Inspection Neck: Normal Inspection Respiratory: Lungs Clear, Normal Breath Sounds, No Accessory Muscle Use, No Respiratory Distress, Other (lower anterior chest tender to palpation over the lower sternum) Cardiovascular: Regular Rate, Rhythm, No Edema, No Murmur Gastrointestinal: Normal Bowel Sounds, Soft, Tenderness (epigastric) Extremity: Normal Inspection, Non Tender, No Calf Tenderness, No Pedal Edema, Other (negative Jame) Neurologic/Psychiatric: Alert, Oriented x3, No Motor/Sensory Deficits, Normal Mood/Affect, spout tender II-XII Norm as Tested Skin: Normal Color, Warm/Dry Progress/Results/Core Measures Results/Orders Lab Results Laboratory Tests Test 12/25/17 08:01 Range/Units White Blood Count 7.4 4.3-11.0 10^3/uL Red Blood Count 4.55 4.35-5.85 10^6/uL Hemoglobin 13.3 11.5-16.0 G/DL Hematocrit 38 35-52 % Mean Corpuscular Volume 83 80-99 FL Mean Corpuscular Hemoglobin 29 25-34 PG Mean Corpuscular Hemoglobin Concent 35 32-36 G/DL Red Cell Distribution Width 13.0 10.0-14.5 % Platelet Count 345 130-400 10^3/uL Mean Platelet Volume 9.4 7.4-10.4 FL Neutrophils (%) (Auto) 75 42-75 % Lymphocytes (%) (Auto) 19 12-44 % Monocytes (%) (Auto) 6 0-12 % Eosinophils (%) (Auto) 0 0-10 % Basophils (%) (Auto) 0 0-10 % Neutrophils # (Auto) 5.5 1.8-7.8 X 10^3 Lymphocytes # (Auto) 1.4 1.0-4.0 X 10^3 Monocytes # (Auto) 0.4 0.0-1.0 X 10^3 Eosinophils # (Auto) 0.0 0.0-0.3 10^3/uL Basophils # (Auto) 0.0 0.0-0.1 10^3/uL Prothrombin Time 13.7 12.2-14.7 SEC INR Comment 1.0 0.8-1.4 Activated Partial Thromboplast Time 35 24-35 SEC Sodium Level 138 135-145 MMOL/L Potassium Level 3.6 3.6-5.0 MMOL/L Chloride Level 101 98-107 MMOL/L Carbon Dioxide Level 27 21-32 MMOL/L Anion Gap 10 5-14 MMOL/L Blood Urea Nitrogen 14 7-18 MG/DL Creatinine 0.82 0.60-1.30 MG/DL Estimat Glomerular Filtration Rate > 60 BUN/Creatinine Ratio 17 Glucose Level 164 H 70-105 MG/DL Calcium Level 10.1 8.5-10.1 MG/DL Magnesium Level 2.2 1.8-2.4 MG/DL Total Bilirubin 0.8 0.1-1.0 MG/DL Aspartate Amino Transf (AST/SGOT) 18 5-34 U/L Alanine Aminotransferase (ALT/SGPT) 21 0-55 U/L Alkaline Phosphatase 84 40-136 U/L Myoglobin 29.4 10.0-92.0 NG/ML Troponin I < 0.30 <0.30 NG/ML Total Protein 8.1 6.4-8.2 GM/DL Albumin 4.3 3.2-4.5 GM/DL Lipase 26 8-78 U/L My Orders Isaura - IJEOMA HOWELL MD Cbc With Automated Diff (12/25/17 08:46) Magnesium (12/25/17 08:46) Chest 1 View, Ap/Pa Only (12/25/17 08:46) Ekg Tracing (12/25/17 08:46) Cardiac Profile 1 (12/25/17 08:46) Comprehensive Metabolic Panel (12/25/17 08:46) Myoglobin Serum (12/25/17 08:46) Protime With Inr (12/25/17 08:46) Partial Thromboplastin Time (12/25/17 08:46) O2 (12/25/17 08:46) Monitor-Rhythm Ecg Trace Only (12/25/17 08:46) Saline Lock/Iv-Start (12/25/17 08:46) Lipase (12/25/17 09:07) Lidocaine 2% Viscous 15 Ml (Xylocaine Vi (12/25/17 09:30) Antacid Suspension (Mylanta Suspension (12/25/17 09:30) Famotidine Injection (Pepcid Injection) (12/25/17 09:30) Ondansetron Injection (Zofran Injectio (12/25/17 09:30) Helicobacter Pylori Berta Igg (12/25/17 10:48) Medications Given in ED Current Medications Medications Dose Ordered Sig/Ananda Route Start Time Stop Time Status Last Admin Dose Admin Al Hydrox/Mg Hydrox/Simethicone 30 ml ONCE ONCE PO 12/25/17 09:30 12/25/17 09:31 DC 12/25/17 10:09 30 ML Famotidine 20 mg ONCE ONCE IVP 12/25/17 09:30 12/25/17 09:31 DC 12/25/17 10:09 20 MG Lidocaine HCl 15 ml ONCE ONCE PO 12/25/17 09:30 12/25/17 09:31 DC 12/25/17 10:09 15 ML Ondansetron HCl 4 mg ONCE ONCE IVP 12/25/17 09:30 12/25/17 09:31 DC 12/25/17 10:09 4 MG Vital Signs/I&O Vital Sign - Last 12Hours 12/25/17 12/25/17 07:47 11:10 Temp 97.3 97.3 Pulse 106 88 Resp 22 18 B/P (MAP) 148/96 (113) 138/90 (113) Pulse Ox 97 98 O2 Delivery Room Air Blood Pressure Mean: 113 Progress Note : Progress Note Patient had marked improvement in symptoms after being treated with GI cocktail. She reports her pain is now only 2/10 down from 8/10 and present only in her upper back. ECG Initial ECG Impression Date: Dec 25, 2017 Initial ECG Impression Time: 07:48 Initial ECG Rate: 106 Initial ECG Rhythm: Normal Sinus Initial ECG Intervals: Normal Initial ECG Impression: Normal Comment Sinus tachycardia rhythm with no ST elevation or depression. No abnormal intervals or axis deviation. Diagnostic Imaging Diagonstic Imaging: Xray Plain Films/CT/US/NM/MRI: chest Comments Chest x-ray viewed by me and report reviewed. See report below: NAME: [facility] REC#: [id number] PT STATUS: REG ER : 1960 PHYSICIAN: IJEOMA HOWELL MD ADMIT DATE: 12/25/17/ER Signed Date of Exam: 12/25/17 CHEST 1 VIEW, AP/PA ONLY Indication: Chest pain Comparison: 05/11/2017 Findings: Upright portable view of the chest is obtained. Heart size is normal. The pulmonary vessels appear unremarkable. There is no pneumothorax, mediastinal widening or pleural fluid. Lungs are clear. IMPRESSION: Negative chest. Dictated by: Dictated on workstation # [id number] Dict: 12/25/17 0913 Trans: 12/25/17 1010 Interpreted by: LONNIE ROMERO DO Electronically signed by: LONNIE ROMERO DO 12/25/17 1010 Departure Impression Impression: Primary Impression: Atypical chest pain Additional Impressions: Epigastric pain Upper back pain Disposition: 01 HOME, SELF-CARE Condition: Improved Departure-Patient Inst. Decision time for Depature: 10:45 Referrals: [facility] (PCP/Family) Primary Care Physician Patient Instructions: Acid Reflux (Gastroesophageal Reflux Disease) in Adults, Gastritis Add. Discharge Instructions: Continue to take your Protonix (pantoprazole) once a day. Add Pepcid (famotidine) 20 mg twice a day as prescribed. Crush your Carafate (sucralfate) and mixed with a small amount of water to make a slurry. Continue taking 4 times a day. This should be taken 30 minutes before eating or drinking at each meal time and before bed. A test for H. pylori was added to your blood work in the ER. You should follow- up on these results with your primary care provider. Follow-up at [facility] in1-2 weeks. If symptoms are persisting you may need to have another endoscopy performed. Return to the ER if symptoms are worsening despite changing treatment. Avoid the following: Eating large meals, eating close to bedtime, caffeine, carbonation, chocolate, citrus fruits and juices, tomato products, tobacco products, alcohol, mints, spicy foods, fatty or greasy foods, NSAID medications such as ibuprofen or naproxen, or anything else you know irritates your stomach. Elevating your head at bedtime with multiple pillows may also be helpful. All discharge instructions reviewed with patient and/or family. Voiced understanding. Scripts Famotidine (Pepcid) 20 Mg Tablet 20 MG PO BID, #60 TAB Prov: IJEOMA HOWELL MD 12/25/17 Copy Copies To 1: HENRY MENG JOSHUA T MD Dec 25, 2017 10:48
[2017-12-25] MEDS ORDERED: FAMO-119 PO (10:53)
[2017-12-25 11:10] VITALS: BP 138/90
== END 2017-12-25 11:10 | disposition home or self-care (01) ==
LOC: EDUNIT# 07:21 → ER 07:23
DX: R10.13 Epigastric pain (principal); R07.89 Other chest pain; M54.6 Pain in thoracic spine; E78.00 Pure hypercholesterolemia, unspecified; I10 Essential (primary) hypertension; E11.9 Type 2 diabetes mellitus without complications; Z87.19 Personal history of other diseases of the digestive system; Z79.84 Long term (current) use of oral hypoglycemic drugs; Z87.59 Personal history of other complications of pregnancy, childbirth and the puerperium
CPT/HCPCS: 36415; 71045; 80053; 83690; 83735; 83874; 84484; 85025; 85610; 85730; 86677; 93041

== ENCOUNTER → 2018-07-26 | Outpatient (CLI) | payer OTHER ==
[~2018-07-26] MED LIST changes: +ATOR40TA70 PO; +FAMO-119 PO; +LOSA50TA7 PO; +METF500T PO; +METO50TA15 PO
--- NOTE | 2018-07-26 12:43 | Diagnostic Imaging Report ---
INDICATION: Routine screening. COMPARISON: No prior mammograms are available for comparison. TECHNIQUE: 2-D and 3-D bilateral screening mammography was performed with CAD. FINDINGS: Both breasts are heterogeneously dense, limiting the sensitivity of mammography. There is a density in the left breast at posterior depth at the nipple line. No definite correlate is seen on the CC view. Additional views are recommended. The right breast is unremarkable. There are benign parenchymal and vascular calcifications. No malignant-appearing microcalcifications are seen. The axillae are unremarkable. IMPRESSION: BI-RADS 0. Left breast density. Additional views are recommended for further evaluation. ACR BI-RADS Category 0: Incomplete. (Needs additional imaging evaluation). Result letter will be mailed to the patient. Note: At least 10% of breast cancer is not imaged by mammography. Dictated by: Dictated on workstation # [id number]
== END ==
LOC: RAD 08:44
PROVIDERS: ATTEND Nurse Practitioner Primary Care
DX: Z12.31 Encounter for screening mammogram for malignant neoplasm of breast (principal); R92.8 Other abnormal and inconclusive findings on diagnostic imaging of breast
CPT/HCPCS: 77067

== ENCOUNTER → 2018-08-23 | Outpatient (CLI) | payer OTHER ==
--- NOTE | 2018-08-23 19:28 | Diagnostic Imaging Report ---
INDICATION: Left breast density. Patient presents for additional views. COMPARISON: Correlation is made with recent screening mammogram from 07/26/2018. TECHNIQUE: Unilateral left 2D and 3D diagnostic mammography was performed with computer-aided detection (CAD) system. FINDINGS: There is a fairly well-circumscribed density in the upper and inner aspect of the left breast with additional views approximately 8 cm from the nipple. Further evaluation of this area with ultrasound is recommended. No suspicious microcalcifications are seen. No other masses are identified. IMPRESSION: Persistent nodular density in the upper and inner left breast posterior depth after additional views. Ultrasound of this area is recommended and will be performed today. ACR BI-RADS Category 0: Incomplete. (Needs additional imaging evaluation). Result letter will be mailed to the patient. Note: At least 10% of breast cancer is not imaged by mammography. Dictated by: Dictated on workstation # [id number]
--- NOTE | 2018-08-23 19:35 | Diagnostic Imaging Report ---
INDICATION: Left breast density. Study is performed for further evaluation. COMPARISON: Correlation is made with diagnostic mammogram earlier the same day and screening mammogram from 07/26/2018. FINDINGS: Sonographic interrogation of the upper-inner left breast was performed. There is a hypoechoic mass at the 10 o'clock location of the left breast, 6 cm from the nipple. This measures 6 mm x 4 mm x 7 mm. This does show some internal complexity, suggestive of a complex cyst. No internal vascularity is seen. There does appear to be mild posterior acoustic enhancement. No other sonographic abnormalities are seen. IMPRESSION: Hypoechoic mass in 10 o'clock location of the left breast, 6 cm from the nipple, likely accounting for the mammographic density. This most likely represent a complex cyst. Followup left mammogram and left breast ultrasound in six months are recommended to confirm stability. ACR BI-RADS Category 3: Probably benign findings. Dictated by: Dictated on workstation # [id number]
== END ==
LOC: RAD 11:28
PROVIDERS: ATTEND Nurse Practitioner Primary Care
DX: N63.22 Unspecified lump in the left breast, upper inner quadrant (principal)
CPT/HCPCS: 76642

== ENCOUNTER → 2019-03-15 | Outpatient (CLI) | payer OTHER ==
[~2019-03-15] MED LIST changes: +LOSA50TA63 PO; -LOSA50TA7 PO
--- NOTE | 2019-03-15 17:48 | Diagnostic Imaging Report ---
INDICATION: Left breast density. Patient presents for six-month followup. COMPARISON: Correlation made with prior mammograms from 07/26/2018 and 08/23/2018. EXAMINATION: Unilateral left 2D and 3D diagnostic mammography was performed. FINDINGS: Left breast is heterogeneously dense, limiting the sensitivity of mammography. Circumscribed nodule in the upper-inner left breast, posterior depth, is stable. No new mass or malignant appearing microcalcifications are seen. Left axilla is unremarkable. IMPRESSION: Stable left breast nodule. Further evaluation with ultrasound is recommended and will be performed today. ACR BI-RADS Category 0: Incomplete. (Needs additional imaging evaluation). Result letter will be mailed to the patient. Note: At least 10% of breast cancer is not imaged by mammography. Dictated by: Dictated on workstation # [id number]
--- NOTE | 2019-03-15 17:52 | Diagnostic Imaging Report ---
INDICATION: Six-month followup of left breast nodule. COMPARISON: Correlation is made with diagnostic mammogram from earlier the same day as well as prior left breast ultrasound from 08/23/2018. EXAMINATION: Sonographic interrogation at the 10 o'clock location of the left breast, 7 cm from the nipple, was performed. FINDINGS: There is a fairly well-circumscribed hypoechoic nodule at this location. Nodule measures 8 mm x 4 mm x 7 mm compared with 6 mm x 4 mm x 7 mm on prior. No internal vascularity is seen. No new mass is detected. IMPRESSION: Similar hypoechoic nodule at the 10 o'clock location of the left breast when compared to the examination of six months earlier. Continued sonographic followup with repeat study in six months is recommended to show continued stability. ACR BI-RADS Category 3: Probably benign findings. Result letter will be mailed to the patient. Note: At least 10% of breast cancer is not imaged by mammography. Dictated by: Dictated on workstation # [id number]
== END ==
LOC: RAD 12:09
PROVIDERS: ATTEND Nurse Practitioner Primary Care
DX: N63.22 Unspecified lump in the left breast, upper inner quadrant (principal); N60.02 Solitary cyst of left breast
CPT/HCPCS: 76642

== ENCOUNTER → 2019-09-11 | Outpatient (CLI) | payer OTHER ==
--- NOTE | 2019-09-11 13:17 | Diagnostic Imaging Report ---
INDICATION: 6 month followup left breast nodule. COMPARISON: 03/15/2019 and 07/26/2018. TECHNIQUE: 2D and 3D bilateral diagnostic mammography was performed with CAD. FINDINGS: Both breasts remain heterogeneously dense, limiting the sensitivity of mammography. The circumscribed ovoid nodule in the medial left breast appears stable. No new mass or malignant appearing microcalcifications are seen. There are benign parenchymal and vascular calcifications bilaterally. The axillae are unremarkable. IMPRESSION: Stable bilateral mammograms. Followup left breast ultrasound of the previously noted left breast nodule is recommended and will be performed today. ACR BI-RADS Category 0: Incomplete. (Needs additional imaging evaluation). Result letter will be mailed to the patient. Note: At least 10% of breast cancer is not imaged by mammography. Dictated by: Dictated on workstation # [id number]
--- NOTE | 2019-09-11 13:56 | Diagnostic Imaging Report ---
INDICATION: 6 month followup left breast nodule. COMPARISON: Correlation is made with the diagnostic mammogram from earlier this same day as well as the prior left breast ultrasound from 03/15/2019. FINDINGS: Sonographic interrogation of the 10 o'clock location of the left breast was performed 6 cm from the nipple. There appears to be a hypoechoic nodule at this location measuring 7 mm x 7 mm x 4 mm, stable when compared with the prior exam. This may represent a small cyst. No other mass is detected. IMPRESSION: Stable hypoechoic nodule in the left breast at the 10 o'clock location 6 cm from the nipple. A followup left breast ultrasound in 6 months is recommended to show continued stability. ACR BI-RADS Category 3: Probably benign findings. Dictated by: Dictated on workstation # [id number]
== END ==
LOC: RAD 12:43
PROVIDERS: ATTEND Nurse Practitioner Primary Care
DX: N63.22 Unspecified lump in the left breast, upper inner quadrant (principal); N60.02 Solitary cyst of left breast
CPT/HCPCS: 76642; 77066

== ENCOUNTER → 2020-03-20 | Outpatient (CLI) | payer OTHER ==
--- NOTE | 2020-03-20 11:34 | Diagnostic Imaging Report ---
INDICATION: Left breast cyst, follow-up. CORRELATION is made with left breast ultrasound from 09/11/2019. Sonographic interrogation of the 10:00 location of the left breast, 6 cm from the nipple was performed. Previously noted cyst at this location is no longer visualized. No solid mass is detected. IMPRESSION: BI-RADS Category 1 Resolution of previously noted cyst at the 10:00 location of the left breast when compared with prior exam from 09/11/2019. Dictated by: Dictated on workstation # [id number]
== END ==
LOC: RAD 10:05
PROVIDERS: ATTEND Nurse Practitioner Family
DX: N60.02 Solitary cyst of left breast (principal)
CPT/HCPCS: 76642